=== PATIENT | male | born 1945 | race Caucasian/White ===

== ENCOUNTER → 2017-11-15 | Outpatient (REF) | payer MEDICARE, BC ==
[2017-11-15 18:34] LABS: APPEARANCE, URINE CLOUDY (CLEAR); BACTERIA, URINE AUTO 1+ (NEGATIVE); BILIRUBIN, URINE AUTO NEGATIVE (NEGATIVE); BLOOD, URINE BLOOD 1+ (NEGATIVE); CALCIUM OXALATE CRYSTALS LARGE; COLOR, URINE AMBER (YELLOW); GLUCOSE, URINE (UA) AUTO NEGATIVE (NEGATIVE); KETONE, URINE AUTO NEGATIVE (NEGATIVE); LEUKOCYTE ESTERASE, URINE AUTO 2+ (NEGATIVE); MUCUS, URINE LARGE (NEGATIVE); NITRITE, URINE AUTO NEGATIVE (NEGATIVE); PROTEIN, URINE AUTO 2+ mg/dL (NEGATIVE); RBC, URINE AUTO 16 /HPF (0-3); SPECIFIC GRAVITY URINE AUTO 1.021 (1.002-1.035); SQUAMOUS EPITHELIAL CELL UR AU 0 /HPF (0-6); WBC, URINE AUTO 110 /HPF (0-3)
== END ==
LOC: M LABDRAWC 16:27
DX: M15.0 Primary generalized (osteo)arthritis (principal); I25.10 Atherosclerotic heart disease of native coronary artery without angina pectoris; Z51.81 Encounter for therapeutic drug level monitoring; Z79.899 Other long term (current) drug therapy; Z79.52 Long term (current) use of systemic steroids
CPT/HCPCS: 81001

== ENCOUNTER → 2017-11-28 | Outpatient (REF) | payer MEDICARE, BC ==
[2017-11-28 18:40] LABS: APPEARANCE, URINE CLEAR (CLEAR); BACTERIA, URINE AUTO NEGATIVE (NEGATIVE); BILIRUBIN, URINE AUTO NEGATIVE (NEGATIVE); BLOOD, URINE BLOOD NEGATIVE (NEGATIVE); COLOR, URINE YELLOW (YELLOW); GLUCOSE, URINE (UA) AUTO NEGATIVE (NEGATIVE); KETONE, URINE AUTO NEGATIVE (NEGATIVE); LEUKOCYTE ESTERASE, URINE AUTO NEGATIVE (NEGATIVE); MUCUS, URINE SMALL (NEGATIVE); NITRITE, URINE AUTO NEGATIVE (NEGATIVE); PROTEIN, URINE AUTO NEGATIVE (NEGATIVE); RBC, URINE AUTO 2 /HPF (0-3); SPECIFIC GRAVITY URINE AUTO 1.015 (1.002-1.035); SQUAMOUS EPITHELIAL CELL UR AU 0 /HPF (0-6); UROBILINOGEN, URINE AUTO 0.2 mg/dL (0.0-2.0); WBC, URINE AUTO 3 /HPF (0-3)
== END ==
LOC: M LABDRWCV 17:14
DX: N39.0 Urinary tract infection, site not specified (principal); Z79.899 Other long term (current) drug therapy
CPT/HCPCS: 81001

== ENCOUNTER → 2018-02-08 | Outpatient (REF) | payer MEDICARE, BC | LOC: M LAB REF 14:01 | DX: M70.22 Olecranon bursitis, left elbow (principal) | CPT/HCPCS: 87205 ==

== ENCOUNTER 2023-11-13 11:36 | Inpatient (IN) | payer MEDICARE, BC ==
[~2023-11-13] VITALS: Ht 185.4 cm; Wt 103.5 kg
[2023-11-13] MEDS ORDERED: AMLO1TAB25 PO (12:01)
[2023-11-13] MEDS ORDERED: REPA140I2 INJ (12:01)
[2023-11-13] MEDS ORDERED: ASPI81TA26 PO (12:01)
[2023-11-13] MEDS ORDERED: FARX1TAB3 PO (12:01)
[2023-11-13] MEDS ORDERED: SYNT75TA PO (12:01)
[2023-11-13] MEDS ORDERED: LISI5TAB11 PO (12:01)
[2023-11-13] MEDS ORDERED: D3 S1CAP3 PO (12:03)
[2023-11-13] MEDS ORDERED: XALA0.007 OD (12:04)
[2023-11-13] MEDS ORDERED: LEVO5OPD OU (12:04)
[2023-11-13 12:44] LABS: BASO # 0.1 10^3/uL (0.0-0.2); BASO % 0.6 % (0.0-1.0); EOS # 0.1 10^3/uL (0.0-0.5); EOS % 1.6 % (0.0-3.0); HEMATOCRIT 48.8 % (42.0-52.0); HEMOGLOBIN 15.8 g/dl (13.5-17.5); LYMPH # 1.4 10^3/uL (1.5-5.0); LYMPH % 16.8 % (24.0-44.0); MEAN CORPUSCULAR HEMOGLOBIN 30.2 pg (27.0-33.0); MEAN CORPUSCULAR HGB CONC 32.4 g/dl (32.0-36.5); MEAN CORPUSCULAR VOLUME 93.3 fl (80.0-96.0); MONO # 0.8 10^3/uL (0.0-0.8); MONO % 10.3 % (2.0-8.0); NEUTROPHILS # 5.8 10^3/uL (1.5-8.5); NEUTROPHILS % 70.6 % (36.0-66.0); PLATELET COUNT, AUTOMATED 185 10^3/uL (150-450); RED BLOOD COUNT 5.23 10^6/uL (4.30-6.10); WHITE BLOOD COUNT 8.2 10^3/uL (4.0-10.0)
[2023-11-13] MEDS: ASPIRIN 81MG CHEW TABLET PO ONE (12:51)
[2023-11-13 13:06] LABS: LIPASE 29 U/L (12-53)
[2023-11-13 13:08] LABS: ALBUMIN 3.6 G/DL (3.2-5.2); ALKALINE PHOSPHATASE 91 U/L (46-116); ALT/SGPT 20 U/L (7.0-40); AST/SGOT 17 U/L (<34); BILIRUBIN,DIRECT 0.5 MG/DL (<0.4); BILIRUBIN,TOTAL 1.3 MG/DL (0.3-1.2); BLOOD UREA NITROGEN 22 MG/DL (9-23); CALCIUM LEVEL 9.4 MG/DL (8.3-10.6); CARBON DIOXIDE LEVEL 24 MMOL/L (20-31); CHLORIDE LEVEL 112 MMOL/L (98-107); CREATININE FOR GFR 1.03 MG/DL (0.70-1.30); GLOMERULAR FILTRATION RATE > 60.0 (>42); GLUCOSE, FASTING 102 MG/DL (74-106); POTASSIUM SERUM 4.4 MMOL/L (3.5-5.1); SODIUM LEVEL 142 MMOL/L (136-145); TOTAL PROTEIN 5.9 G/DL (5.7-8.2)
[2023-11-13 13:09] LABS: FREE T4 1.25 NG/DL (0.89-1.76); THYROID STIMULATING HORMONE 0.906 uIU/ML (0.55-4.78)
[2023-11-13 13:10] LABS: CPK CREATINE PHOSPHOKINASE 139 U/L (46-171); MB/CK RELATIVE INDEX 2.87 (< OR =4)
[2023-11-13 13:40] LABS: RSV AMPLIFICATION NEGATIVE (NEGATIVE)
[2023-11-13] MEDS ORDERED: ISOVUE-370 76% 100ML VIAL As Ordered ONE (13:45)
[2023-11-13] MEDS ORDERED: HOME MED LIST COMPLETE! XX SCH (14:45)
[2023-11-13 14:49] LABS: MAGNESIUM LEVEL 2.1 MG/DL (1.8-2.4)
[2023-11-13] MEDS: FUROSEMIDE 40MG/4ML VIAL IV ONE (15:01)
[2023-11-13 15:06] LABS: CK-MB VALUE MASS 3.7 NG/ML (<3.6)
[2023-11-13 15:07] LABS: MB/CK RELATIVE INDEX 2.86 (< OR =4)
[2023-11-13] MEDS ORDERED: MAALOX 30 ML SUSP *UDC PO PRN (16:05)
[2023-11-13] MEDS ORDERED: MOM 30ML SUSPENSION UDC PO PRN (16:05)
[2023-11-13 16:15] LABS: CK-MB VALUE MASS 4.2 NG/ML (<3.6)
[2023-11-13 16:16] LABS: MB/CK RELATIVE INDEX 3.15 (< OR =4)
[2023-11-13] MEDS: DOCUSATE SODIUM 100MG CAPSULE PO SCH (21:00)
[2023-11-13] MEDS: FUROSEMIDE 40MG/4ML VIAL IV SCH (23:59)
[2023-11-14] MEDS: ACETAMINOPHEN TAB 650MG DOSE (2X325MG) PO PRN (04:02)
[2023-11-14] MEDS: LIDOCAINE 5% (LIDODERM) PATCH TD ONE (04:35)
[2023-11-14] MEDS: LEVOTHYROXINE 75MCG TABLET (0.075MG) PO SCH (06:00)
[2023-11-14] MEDS: ENOXAPARIN 40MG/0.4ML SYRINGE (J1650 PER 10MG) SC SCH (07:54)
[2023-11-14 08:19] LABS: BASO # 0.1 10^3/uL (0.0-0.2); BASO % 0.7 % (0.0-1.0); EOS # 0.2 10^3/uL (0.0-0.5); EOS % 1.9 % (0.0-3.0); HEMATOCRIT 48.6 % (42.0-52.0); LYMPH # 1.3 10^3/uL (1.5-5.0); LYMPH % 15.5 % (24.0-44.0); MEAN CORPUSCULAR HEMOGLOBIN 30.4 pg (27.0-33.0); MEAN CORPUSCULAR HGB CONC 32.9 g/dl (32.0-36.5); MEAN CORPUSCULAR VOLUME 92.4 fl (80.0-96.0); MONO # 0.7 10^3/uL (0.0-0.8); MONO % 8.8 % (2.0-8.0); NEUTROPHILS % 72.9 % (36.0-66.0); PLATELET COUNT, AUTOMATED 194 10^3/uL (150-450); RED BLOOD COUNT 5.26 10^6/uL (4.30-6.10); WHITE BLOOD COUNT 8.2 10^3/uL (4.0-10.0)
[2023-11-14 08:44] LABS: BLOOD UREA NITROGEN 25 MG/DL (9-23); CALCIUM LEVEL 9.8 MG/DL (8.3-10.6); CARBON DIOXIDE LEVEL 24 MMOL/L (20-31); CHLORIDE LEVEL 107 MMOL/L (98-107); CREATININE FOR GFR 1.05 MG/DL (0.70-1.30); GLOMERULAR FILTRATION RATE > 60.0 (>42); GLUCOSE, FASTING 131 MG/DL (74-106); MAGNESIUM LEVEL 2.1 MG/DL (1.8-2.4); POTASSIUM SERUM 4.2 MMOL/L (3.5-5.1); SODIUM LEVEL 142 MMOL/L (136-145)
[2023-11-14 10:20] VITALS: BP 125/56; TEMP 97.2; O2SAT 96
[2023-11-14] MEDS: DAPAGLIFLOZIN PROPANEDIOL 10MG TABLET (FARXIGA) PO SCH (11:45)
[2023-11-14] MEDS: lisinopriL 5 MG TAB PO SCH (11:45)
[2023-11-14] MEDS: ASPIRIN 81MG ENTERIC TABLET PO SCH (11:45)
[2023-11-14 12:14] VITALS: BP 140/75; TEMP 96.9; O2SAT 96
[2023-11-14 15:32] VITALS: BP 129/71; TEMP 96.7; O2SAT 96
[2023-11-14] MEDS ORDERED: ENTR1TAB PO (18:30)
[2023-11-14 20:34] VITALS: BP 113/70; TEMP 96.8; O2SAT 98
[2023-11-14] MEDS: LIDOCAINE 5% (LIDODERM) PATCH TD SCH (21:00)
[2023-11-14] MEDS: METOPROLOL SUCC *XL* 25MG TAB (TopROL *XL*) PO SCH (21:00)
[2023-11-14] MEDS: CYCLOBENZAPRINE 5MG TABLET PO SCH (21:59)
[2023-11-14] MEDS: LATANOPROST 0.005% OPHTH SOLN 2.5 ML OU SCH (22:01)
[2023-11-15 04:00] VITALS: BP 121/80; TEMP 96.7; O2SAT 94
[2023-11-15 06:54] LABS: BLOOD UREA NITROGEN 27 MG/DL (9-23); CALCIUM LEVEL 9.8 MG/DL (8.3-10.6); CARBON DIOXIDE LEVEL 28 MMOL/L (20-31); CHLORIDE LEVEL 105 MMOL/L (98-107); CREATININE FOR GFR 1.08 MG/DL (0.70-1.30); GLOMERULAR FILTRATION RATE > 60.0 (>42); GLUCOSE, FASTING 122 MG/DL (74-106); MAGNESIUM LEVEL 1.9 MG/DL (1.8-2.4); POTASSIUM SERUM 3.9 MMOL/L (3.5-5.1); SODIUM LEVEL 142 MMOL/L (136-145)
[2023-11-15] MEDS: POTASSIUM CHLORIDE 10MEQ SR TABLET PO ONE (09:54)
[2023-11-15] MEDS: SPIRONOLACTONE 12.5MG PER 1/2 TABLET PO SCH (09:54)
[2023-11-15 09:55] VITALS: BP 121/80
[2023-11-15] MEDS: METOPROLOL SUCC *XL* 25MG TAB (TopROL *XL*) PO SCH (09:55)
[2023-11-15] MEDS: MAGNESIUM OXIDE 400MG TAB (MAG-OX) PO SCH (09:55)
[2023-11-15 12:06] VITALS: BP 106/72; TEMP 96.7; O2SAT 96
[2023-11-15] MEDS ORDERED: POTA-150 PO (14:19)
[2023-11-15] MEDS ORDERED: METO1TAB32 PO (14:19)
[2023-11-15] MEDS ORDERED: ALDA25TA2 PO (14:19)
[2023-11-15] MEDS ORDERED: FURO40TA2 PO (14:19)
[2023-11-15] MEDS ORDERED: MAGN400T2 PO (14:19)
[2023-11-16] MEDS ORDERED: ENTRESTO 24-26MG TABLET (SACUBITRIL/VALSARTAN) PO SCH (09:00)
== END 2023-11-15 15:24 | disposition home or self-care (01) | DRG 291 ==
LOC: M ED 11:36 → EDBD 11:36 → M ED INP 16:05 → M PCU 11-14 10:07
PROVIDERS: ADMIT Internal Medicine; ATTEND Internal Medicine
DX: I11.0 Hypertensive heart disease with heart failure (principal); I50.23 Acute on chronic systolic (congestive) heart failure; R73.03 Prediabetes; E78.5 Hyperlipidemia, unspecified; I25.10 Atherosclerotic heart disease of native coronary artery without angina pectoris; E03.9 Hypothyroidism, unspecified; H40.9 Unspecified glaucoma; Z95.1 Presence of aortocoronary bypass graft; M16.12 Unilateral primary osteoarthritis, left hip; Z86.16 Personal history of COVID-19; Z79.899 Other long term (current) drug therapy; Z79.82 Long term (current) use of aspirin; Z96.649 Presence of unspecified artificial hip joint

== ENCOUNTER → 2023-11-29 | Outpatient (CLI) | payer MEDICARE, BC ==
[~2023-11-29] MED LIST: ALDA25TA2 PO; AMLO1TAB25 PO; ASPI81TA26 PO; D3 S1CAP3 PO; ENTR1TAB PO; FARX1TAB3 PO; FURO40TA2 PO; LEVO5OPD OU; LISI5TAB11 PO; MAGN400T2 PO; METO1TAB32 PO; POTA-150 PO; REPA140I2 INJ; SYNT75TA PO; XALA0.007 OD
[2023-11-29 15:22] LABS: ALBUMIN 3.9 G/DL (3.2-5.2); BILIRUBIN,TOTAL 1.6 MG/DL (0.3-1.2); CALCIUM LEVEL 10.5 MG/DL (8.3-10.6); CREATININE FOR GFR 1.34 MG/DL (0.70-1.30); GLOMERULAR FILTRATION RATE 54.9 (>42); MAGNESIUM LEVEL 2.4 MG/DL (1.8-2.4); POTASSIUM SERUM 5.2 MMOL/L (3.5-5.1); TOTAL PROTEIN 6.3 G/DL (5.7-8.2)
== END ==
LOC: M PLALAB 11:58
DX: I50.23 Acute on chronic systolic (congestive) heart failure (principal)

== ENCOUNTER → 2023-11-29 | Outpatient (REF) | payer MEDICARE, BC | LOC: M SFHCPLAZ 11:48 | PROVIDERS: ATTEND Family Medicine | DX: I50.23 Acute on chronic systolic (congestive) heart failure (principal) ==